=== PATIENT | male | born 1975 | race African-American/Black ===

== ENCOUNTER 2020-08-04 12:30 | Outpatient (RCR) | payer BC, SELFPAY ==
[2020-06-10 12:30] VITALS: BMI 31.7
--- NOTE | 2020-07-08 14:26 | HP.PTEVAL_ITS ---
Patient's Visit Information OKSANA HAQUE is a 45 year old M referred to Physical Therapy by Dr. Bobby Carter MD with a diagnosis of LUMBAGO WITH SCIATICA, LEFT SIDE. Date of Evaluation: 07/08/20 Physical Therapist: Amina Preciado PT, Cert MDT - Visit Plan Frequency: 2-3x /Week Duration: 4-6 Weeks Plan: *START SLOW AND CHECK RETURN TO LAND SHORTLY AFTER STARTING SESSION*. TRIAL OF AQUATIC THERAPY FOR PAIN RELIEF, POSTURE CORRECTION/STRENGTHENING, INSTRUCTION IN APPROPRIATE BODY MECHANICS AND ACTIVITY MODIFICATIONS. DLS STARTING WITH A NEUTRAL SPINE PROGRESSING ROM TOLERATED. WANG LE ROM, STRETCHING AND STRENGTHENING. HEP INSTRUCTION. 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 HAS BEEN OFF WORK SINCE APRIL 2020. Disability: NO. Present symptoms: LOW BACK PAIN. WANG LE PAIN, NUMBNESS AND TINGLING LEFT > RIGHT. WANG LE WEAKNESS. INTERMITTENT PAIN FRONT OF LEFT HIP. Present since: APRIL 2020. Pain Scale: WORST 10/10, LEAST 3/10. Currently: 3/10. Commenced as a result of: NO APPARENT REASON. Symptoms at onset: TIGHTNESS IN LOW BACK LAST FEW DAYS OF WORK. ON A MONDAY WENT OUT FOR A JOG AND FELT TIGHTNESS IN BACK BUT STILL WENT TO WORK. Worse: SHARP PAINS WITH CERTAIN MVMTS, RISING FROM SITTING, WALKING, TRYING TO SLEEP IN BED - SLEEPING IN RECLINER, JOGGING, TRYING DRESSED AND UNDRESSED, SITTING, TRYING TO LIFT LEFT LEG, STANDING. Better: IBUPROFEN. Disturbed sleep: YES. Previous history/Previous treatment: UNREMARKABLE. Treatment this episode: PAIN MEDICINE, MUSCLE RELAXER, STEROID. NO CHIROPRACTOR. NO INJECTIONS. Coughing/sneezing/straining: POSITIVE. Gait: PATIENT REPORTS HIS LEGS FEEL VERY HEAVY AND TIRED. LEFT LEG CAN HOLD NO PRESSURE AND THERE HAVE BEEN TIMES I FELL. USING A CANE ALL THE TIME. Difficulty initiating urinatin: NO. Accidents: NO. Unexplained weight loss: NO. Imaging: LUMBAR, LEFT HIP X- RAYS END OF MAY AT [facility] - NORMAL PER PATIENT REPORT. CT SCAN AT [facility] IN [place] - NORMAL. PMH: UNREMARKABLE. Recent major surgery: NO. OTHER: PATIENT LIVES WITH WHO IS IN GOOD HEALTH. STATES HE IS ABLE TO DRESS AND BATHE HIMSELF. PLOF (Prior Level of Function): UNLIMITED - Objective Sitting/Standing Posture: POOR. RIGHT LATERAL SHIFT. ABLE TO CROSS MID-LINE TO THE LEFT. Active Correction of posture: WORSE. Other Observations: INDEP ANTALGIC GAIT INTO PT WITH DECREASED CADANCE, DECREASED WANG STRIDE LENGTH, WANG LE LIMP L>R VERY DEPENDENT ON QUAD CANE. PATIENT IS ABLE TO INDEP'LY TRANSFER FROM SIT TO SUPINE EA WAY AND INDEP'LY GET HIS LEGS UP ON THE BED WITHOUT UE ASSIST AND MVMT IS FAIRLY FLUID. STANDING AND WALKING TOLERANCE IS POOR. Motor deficit: WANG LE WEAKNESS. RIGHT: HIP 4/5, KNEE EXT 4/5, KNEE FLEX 4/5, ANKLE DORSIFLEXION 2+/5. LEFT HIP 4-/5, KNEE EXT 4-/5, KNEE FLEX 4-/5, ANKLE DORSIFLEXION 2-/5. Sensory deficit: DECREASED LEFT LATERAL LEG LIGHT TOUCH SENSATION AND DECREASED WANG FOOT LIGHT TOUCH. ROM deficit: TIGHT WANG HS'S AND GASTROC SOLEUS COMPLEX'S. SUPINE WANG KNEE ROM IS 0 DEG EXT TO 115 DEG FLEX WITH AN ACTIVE HEEL SLIDE. PATIENT ALSO HAS FULL WANG KNEE EXT ACTIVELY IN SITTING. Reflexes: UNABLE TO ELICIT WANG LE DTR'S. Dural Signs: NEGATIVE WANG LE'S. Lumbar mvmt loss: flex - NIL - INCREASED PAIN AND LB TIGHTNESS UPON RETURN. ext - MOD - NE. R SG - MIN. L SG - MIN. Core strength: FAIR. OTHER: PATIENT REPORTS HE FELL AND TWISTED HIS LEFT KNEE MONDAY. STATES HE WAS WEARING FLIP FLOPS AND HE TRIPPED. PATIENT MENTIONED THIS WHEN I WAS MEASURING HIS LEFT KNEE ROM. OTHER: PATIENT IS UNABLE TO HEEL WALK OR TOE WALK. OTHER: PATIENT APPEARS TO BE A GOOD CANDIDATE FOR MRI. WANG LE WEAKNESS EVIDENT. PATIENT MAY BENEFIT FROM AQUATIC THERAPY IF THERAPY AT ALL. RECOMMEND BRIEF TRIAL IF MRI NOT POSSIBLE BUT WILL REFER BACK FOR PHYSICIAN RE-CHECK IF NO PROGRESS MADE OR WORSENING CONTINUES. - Goals Goal 1:: DECREASE C/O BACK AND WANG LE SX'S. Goal Time Frame: 4-6 Weeks Goal 2:: IMPROVE PERSONAL CARE, LIFTING, WALKING, SITTING, STANDING, SLEEP, SOCIAL LIFE, TRAVEL AND WORK/HOMEMAKING FUNCTION. Goal Time Frame: 4-6 Weeks Goal 3:: INSTRUCT IN PROPHYLAXIS Goal Time Frame: 4-6 Weeks - Rehabilitation Potential Rehabilitation Potential: Questionable - Anticipated Interventions Patient/Client Instruction: Educate patient on: Condition, Plan of Care, Risk Factors, Benefits of Fitness Program For the Purpose of:: To improve self management Therapeutic Exercise to Include: Strength training, Endurance training, Body mechanics, Postural training, Flexibilty training, Gait and locomotor training, Neuromotor development, In an aquatic setting, Dynamic Lumbar Stabilization For the Purpose of:: To decrease pain, To increase ROM, To improve muscle performance and motor function, To increase tolerance to activity/condition/position, To improve ability of physical actions for home/community/work/leisure Thank you for the opportunity to evaluate your patient. For Medicare and Medicare HMO plans, please review the plan of care and approve it. It will need to be FAXED BACK to us at [phone] for Medicare purposes. For Medicare only, by signing this I certify the plan of care. Please let me know if there are questions or concerns regarding this plan of care. Physician Signature: Date:
--- NOTE | 2020-08-04 12:54 | HP.PTREVAL_ITS ---
Dr. Bobby Carter MD, It has been my pleasure to treat OKSANA HAQUE over the last 8 visits for LUMBAGO WITH SCIATICA, LEFT SIDE. Please see the progress note below for an update on the physical therapy plan of care! Subjective: PATIENT REPORTS THE STRETCHES HAVE RELIEVED A LITTLE BIT OF PAIN AND HE IS GETTING A LITTLE MORE STRENGTH IN HIS LEFT LEG BUT THE PAIN IS STILL BAD. PATIENT STATES THAT AFTER WALKING A WHILE HIS QUIROGA GETS NUMB AND SOLIS. NO FALLS SINCE STARTING PT. FOLLOW UP SCHEDULED WITH DR. CARTER TOMORROW. PATIENT DENIES ANY NEW SX'S OR BEING WORSE IN ANYWAY SINCE STARTING PT BUT HE IS READY TO DO WHATEVER HE HAS TO DO TO GET BETTER. Objective/Function: PATIENT WAS SEEN TODAY FOR RE-ASSESSMENT OF PROGRESS TOWARD THE SET PT GOALS AND THE NEED FOR FURTHER PHYSICAL THERAPY VS READINESS FOR DISCHARGE. PATIENT IS NOT MAKING SIGNIFICANT PROGRESS WITH PT AND PHYSICIAN RE- CHECK IS RECOMMENDED. UPON EXAM TODAY THERE ARE NO SIGNIFICANT CHANGES SINCE INITIAL EVAL. Plan Plan: HOLD PT UNTIL PHYSICIAN RE-CHECK. PATIENT TO CALL TO RE-SCHEDULE WITH THIS PT IF FURTHER PT IS ORDERED. Goals Goal 1:: DECREASE C/O BACK AND WANG LE SX'S. Goal Time Frame: 4-6 Weeks Goal Progress: Not Progressing Goal 2:: IMPROVE PERSONAL CARE, LIFTING, WALKING, SITTING, STANDING, SLEEP, SOCIAL LIFE, TRAVEL AND WORK/HOMEMAKING FUNCTION. Goal Time Frame: 4-6 Weeks Goal Progress: Not Progressing Goal 3:: INSTRUCT IN PROPHYLAXIS Goal Time Frame: 4-6 Weeks Goal Progress: Not Progressing Anticipated Interventions Patient/Client Instruction: Educate patient on: Condition, Plan of Care, Risk Factors, Benefits of Fitness Program For the Purpose of:: To improve self management Therapeutic Exercise to Include: Strength training, Endurance training, Body mechanics, Postural training, Flexibilty training, Gait and locomotor training, Neuromotor development, In an aquatic setting, Dynamic Lumbar Stabilization For the Purpose of:: To decrease pain, To increase ROM, To improve muscle performance and motor function, To increase tolerance to activity/condition/position, To improve ability of physical actions for home/community/work/leisure Please do not hesitate to contact me at [phone] by phone or if you have questions or concerns regarding this new plan of care! Sincerely, Amina Preciado, PT, Cert MDT
--- NOTE | 2020-09-28 18:21 | HP.PT.NRP ---
OKSANA HAQUE was seen in my office for initial evaluation on 07/08/20. The following Plan of Care was established for this patient: Initial Frequency: 2-3x /Week Initial Duration: 4-6 Weeks Patient/Client Instruction: Educate patient on: Condition, Plan of Care, Risk Factors, Benefits of Fitness Program For the Purpose of:: To improve self management Therapeutic Exercise to Include: Strength training, Endurance training, Body mechanics, Postural training, Flexibilty training, Gait and locomotor training, Neuromotor development, In an aquatic setting, Dynamic Lumbar Stabilization For the Purpose of:: To decrease pain, To increase ROM, To improve muscle performance and motor function, To increase tolerance to activity/condition/position, To improve ability of physical actions for home/community/work/leisure This patient was last seen in our office 08/04/20. Pertinent comments regarding their Physical therapy will appear below: This patient has not returned to Physical Therapy and is appropriate to return to MD for further follow-up as needed. At this point I will be discontinuing this patient from physical therapy. I would be happy to see this patient again in the future if found appropriate by the physician. Thank you! Amina Preciado, PT, Cert MDT
== END 2020-08-04 19:00 | disposition home or self-care (01) ==
LOC: PT 12:30
PROVIDERS: Referring Provider Orthopaedic Surgery; Visit Provider Orthopaedic Surgery
DX: M54.42 Lumbago with sciatica, left side (principal)
CPT/HCPCS: 97113; 97162; 97164